=== PATIENT | female | born 1990 | race Caucasian/White ===

== ENCOUNTER 2017-04-15 21:50 | Emergency (ER) | payer BC, OTHER ==
[~2017-04-15] VITALS: Ht 165.1 cm; Wt 70.8 kg
== END 2017-04-16 00:35 | disposition home or self-care (01) ==
LOC: ED 21:50
DX: K52.9 Noninfective gastroenteritis and colitis, unspecified (principal)
CPT/HCPCS: 80053; 81001; 83690; 84703; 85025; 87045; 87046; 87493; 96361; 96374; 99284; J1885; J7030

== ENCOUNTER 2018-11-05 07:46 | Emergency (ER) | payer OTHER ==
[~2018-11-05] VITALS: Ht 165.1 cm; Wt 75.1 kg
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
--- OUTSIDE RECORDS SUMMARY | ~2018-11-05 | XMS | Clinical Summary ---
Demographics + + + | Address | [address] | | | [place] [address] | + + + | Home Phone | | + + + | Preferred Language | Unknown | + + + | Marital Status | Single | + + + | Tenriism Affiliation | Unknown | + + + | Race | Unknown | + + + | Ethnic Group | Unknown | + + + Author + + + | Author | [facility] | | | and [place] | + + + | Organization | [facility] | | | and [place] | + + + | Address | Unknown | + + + | Phone | Unavailable | + + + Support + + + + + | Name | Relationship | Address | Phone | + + + + + | Gemini Koehler | ECON | [address] | | | | | [place] [address] | | + + + + + | Gemini Koehler | ECON | [address] | | | | | [place] [address] | | + + + + + Care Team Providers + +------+ + | Care Checkroom Chief Name | Role | Phone | + +------+ + | Shelli Hassan Activity | PP | | | Professional | | | + +------+ + Allergies No Known Allergies Medications + + + +---------+------+------+-------+ | Medication | Sig | Dispensed | Refills | Star | End | Statu | | | | | | t | Date | s | | | | | | Date | | | + + + +---------+------+------+-------+ | levonorgestrel | 1 Device by | | 0 | | | Activ | | (MIRENA, 52 MG,) 20 | Intrauterine route | | | | | e | | MCG/24HR IUD | once. | | | | | | + + + +---------+------+------+-------+ | [facility] MELATONIN PO | Take 5 mg by mouth. | | 0 | | | Activ | | | | | | | | e | + + + +---------+------+------+-------+ | CYCLOBENZAPRINE | Take 10 mg by mouth | | 0 | | | Activ | | HCL PO | 3 times daily. | | | | | e | + + + +---------+------+------+-------+ | ESCITALOPRAM | Take 20 mg by mouth | | 0 | | | Activ | | OXALATE PO | Daily. | | | | | e | + + + +---------+------+------+-------+ | MINOCYCLINE HCL PO | Take 100 mg by mouth | | 0 | | | Activ | | | Daily. | | | | | e | + + + +---------+------+------+-------+ | | Apply topically 2 | | 0 | | | Activ | | clindamycin-benzoyl | times daily. | | | | | e | | peroxide (BENZACLIN) | | | | | | | | gel | | | | | | | + + + +---------+------+------+-------+ Active Problems No known active problems Family History + + + + + | Medical History | Relation | Name | Comments | + + + + + | No known problems | Father | | | + + + + + | No known problems | Mother | Gemini | | | | | Jon | | + + + + + + + + + + | Relation | Name | Status | Comments | + + + + + | Father | | | | + + + + + | Mother | Gemini | Alive | | | | Jon | | | + + + + + Social History + +-------+ +--------+------+ | [...] on file | | + + + + + + + | Job Start Date | Occupation | Industry | + + + + | Not on file | Not on file | Not on file | + + + + + + + + | Travel History | Travel Start | Travel End | + + + + + + | No recent travel history available. | + + Last Filed Vital Signs + + + + | Vital Sign | Reading | Time Taken | + + + + | Blood Pressure | 131/66 | 05/20/2017 1613 PST | + + + + | Pulse | 88 | 05/20/20171612 PST | + + + + | Temperature | 37.5 C (99.5 F) | 05/20/20171612 PST | + + + + | Respiratory Rate | 16 | 05/20/20171612 PST | + + + + | Oxygen Saturation | 100% | 05/20/20171612 PST | + + + + | Inhaled Oxygen | - | - | | Concentration | | | + + + + | Weight | 71.1 kg (156 lb 12 | 05/20/20171612 PST | | | oz) | | + + + + | Height | 165.1 cm (5' 5") | 05/20/20173 PST | + + + + | Body Mass Index | 26.08 | 05/20/20173 PST | + + + + Plan of [...] filefrom Last 3 Months Insurance + +--------+ +--------+ +---------+--------+ | Payer | Benefi | Subscriber | Effect | Phone | Address | Type | | | t Plan | ID | jean | | | | | | / | | Dates | | | | | | Group | | | | | | + +--------+ +--------+ +---------+--------+ | [employer] | PHP | [id number] | 06/13/19 | [phone] | | PPO | | PLAN | PROV | | 16-Pre | 5 | | | | | EMPLOY | | [place] | | | | [place] | | | | | | + +--------+ +--------+ +---------+--------+ | [employer] [place] | MEDICA | [id number] | 06/13/19 | [phone] | | Medica | | | [place] | | 17-Pre | 2 | | id | | | PLUS | | sent | | | | + +--------+ +--------+ +---------+--------+ + +--------+ +--------+ + + | Guarantor Name | Accoun | Relation to | Date | Phone | Billing Address | | | t Type | Patient | of | | | | | | | | | | + +--------+ +--------+ + + | Alison Buckley | Person | Self | [birth year] | | [address] | | | al/Fam | | 1990 | [phone] | [place] | | | [place] | | | [address] (Home) | [address] | + +--------+ +--------+ + + Advance Directives Patient has advance care planning documents on file. For more information, please contact:[facility] [place] [address]
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
--- OUTSIDE RECORDS SUMMARY | ~2018-11-05 | XMS | Clinical Summary ---
Demographics + + + | Address | [address] | | | [place] [address] | + + + | Home Phone | | + + + | Preferred Language | Unknown | + + + | Marital Status | Single | + + + | Tenriism Affiliation | Unknown | + + + | Race | Unknown | + + + | Ethnic Group | Unknown | + + + Author + + + | Author | [facility] | | | and [place] | + + + | Organization | [facility] | | | and [place] | + + + | Address | Unknown | + + + | Phone | Unavailable | + + + Support + + + + + | Name | Relationship | Address | Phone | + + + + + | Gemini Koehler | ECON | [address] | | | | | [place] [address] | | + + + + + | Gemini Koehler | ECON | [address] | | | | | [place] [address] | | + + + + + Care Team Providers + +------+ + | Care Gambling Counsellor Name | Role | Phone | + [...] +---------+--------+ | [employer] | PHP | [id number] | 06/13/19 | [phone] | | PPO | | PLAN | PROV | | 16-Pre | 5 | | | | | EMPLOY | | [place] | | | | | [place] | | | | | | [place] | | | | | | + +--------+ +--------+ +---------+--------+ | [employer] [place] | MEDICA | [id number] | 06/13/19 | [phone] | | Medica [...] | | al/Fam | | 1990 | [phone] | [place] | | | [place] | | | [address] (Home) | [address] | + +--------+ +--------+ + + Advance Directives Patient has advance care planning documents on file. For more information, please contact:[facility] [place] [address]
[2018-11-05] MEDS ORDERED: PROPRANOLOL HCL80 M1 PO (07:58)
[2018-11-05] MEDS ORDERED: FIORINAL 50-321 EACH PO (09:40)
[2018-11-05] MEDS ORDERED: ZOFRAN4 MG SL (09:40)
== END 2018-11-05 10:00 | disposition home or self-care (01) ==
LOC: ED 07:46
DX: G43.909 Migraine, unspecified, not intractable, without status migrainosus (principal)
CPT/HCPCS: 84703; 96361; 96374; 96375; 99284-25; J1200; J1885; J2765; J7030